=== PATIENT | female | born 1990 | race Caucasian/White ===

== ENCOUNTER 2024-02-13 12:07 | Emergency (ER) | payer SELFPAY ==
[2024-02-13 12:23] VITALS: BP 110/73; PULSE 64; RESP 16; TEMP 36.7; O2SAT 98
[2024-02-13 13:22] VITALS: BP 108/72; PULSE 72; RESP 20; TEMP 36.9; O2SAT 99
--- NOTE | 2024-02-13 14:15 | DI.RAD_ITS ---
Exam(s) XR WRIST RT COMPLETE EXAM: XR WRIST RT COMPLETE CLINICAL HISTORY: remote carpal arleth surge, wrist pain. TECHNIQUE: 2D digital imaging was performed. COMPARISON: No exams were available for comparison FINDINGS: 3 views There are no fractures of the distal radius and ulna nor significant ulnar variance and no fractures of the scaphoid and lunate nor scapholunate distance abnormality. However, there are multiple calcif ic densities on the medial aspect of the wrist around and dorsal to ulnar styloid. These may be rela demario to the triangular fibrocartilage although this would be somewhat unusual in a 33-year-old. There are also some smaller calcifications seen on the volar aspect of the proximal carpal row as seen on the lateral view. Larger calcific densities are seen dorsally on the lateral view on the medial aspe ct of the wrist dorsal to the triquetrum. No osseous lesions nor erosions evident. No osteoarthritic degenerative changes. No significant oss eous lesions evident. IMPRESSION: Multiple soft tissue calcifications noted on the medial aspect of the wrist as described above. DATA REPOSITORY: RADIATION DOSE DELIVERED:
[2024-02-13] MEDS: Cyclobenzaprine 10 MG TAB 5 MG PO (14:32)
[2024-02-13] MEDS: Ketorolac 15 MG/ML VIAL IM (14:32)
--- NOTE | 2024-02-13 15:06 | ED.GENADUL_ITS ---
Discharge Plan Disposition Patient Disposition: Home Condition: Stable Discharge Details Chief Complaint: Orthopedic Clinical Impression: Pain in wrist Primary Care Provider: [facility],Local ED Provider: Gus Serrano Home Meds and New Rx's Prescriptions: No Action No Known Home Meds Discharge Instructions Instructions: Joint Pain Additional Instructions: Please continue with ibuprofen acetaminophen ice rest elevation, follow-up closely with orthopedic team. Return to the emergency department for any worsening symptoms HPI General Date/Time Provider Initiated Documentation: 02/13/24 13:49 . HPI Narrative: 43-year-old female carpal tunnel surgery in June presents with acute on chronic left wrist pain to medial wrist, no trauma no fever Related Data Home Medications ?Medication ?Instructions ?Recorded ?Confirmed Unknown [No Known Home Meds] 02/13/24 02/13/24 Allergies Allergy/AdvReac Type Severity Reaction Status Date / Time No Known Allergies Allergy Unverified 02/13/24 13:59 General Stated Complaint: Orthopedic BRANDON: 4 Exam Narrative Exam Narrative: Left upper extremity: Warm well-perfused, radial pulse intact, median radial and ulnar sensory distribution intact, full flexion extension, full range of motion ulnar and radial flexion, no ecchymosis abrasions or signs of recent trauma, soft compartments Course Vital Signs Vital signs: Vital Signs Temperature 36.7 C 02/13/24 12:23 Pulse 64 02/13/24 12:23 Respiratory Rate 16 02/13/24 12:23 Blood Pressure 110/73 02/13/24 12:23 Pulse Oximetry 98 02/13/24 12:23 Temperature 36.9 C 02/13/24 13:22 Temperature Source Temporal Artery Scan 02/13/24 13:22 Pulse 72 02/13/24 13:22 Pulse Rhythm Regular 02/13/24 13:22 Pulse Strength Normal 02/13/24 13:22 Respiratory Rate 20 02/13/24 13:22 Respiratory Effort Normal 02/13/24 14:00 Respiratory Depth Normal 02/13/24 13:22 Respiratory Pattern Normal 02/13/24 13:22 Blood Pressure 108/72 02/13/24 13:22 Blood Pressure Mean 84 02/13/24 13:22 Blood Pressure Position Sitting 02/13/24 13:22 Pulse Oximetry 99 02/13/24 13:22 Oxygen Delivery Method Room Air 02/13/24 13:22 Oxygen Flow Rate 0 02/13/24 13:22 Pain Level 4 02/13/24 14:32 Medical Decision Making 33-year-old female carpal tunnel surgery left wrist in June presents with acute on chronic atraumatic left wrist pain, afebrile nontoxic no effusion no external signs of trauma, neurovascular exam of limb intact, x-ray showing some soft tissue calcifications, likely chronic changes related to chronic inflammation, low suspicion for septic joint fracture or dislocation, likely soft tissue strain or sprain. Patient recently moved here and needs orthopedic follow-up, will place referral, patient has wrist splint, patient will continue with anti-inflammatory analgesia. Have given a dose of muscle relaxant here in department. Home care instructions and return precautions given Quality:SDOH Health Related Social Needs: No Data to Display PFSH All Active Problems (Updated 02/13/24 @ 15:13 by Gus Serrano MD) Pain in wrist (Acute) Social History Smoking/Tobacco Use Status: Current every day Tobacco Type: cigarettes and e- cigarettes Smoking risk assessment performed?: Yes Alcohol Intake: never Drug use: Never Substance use type: does not use
== END 2024-02-13 15:40 | disposition home or self-care (01) ==
LOC: ER 15:13 → RED 15:40
PROVIDERS: Emergency Provider Emergency Medicine
DX: M25.531 Pain in right wrist (principal); F17.210 Nicotine dependence, cigarettes, uncomplicated; F17.290 Nicotine dependence, other tobacco product, uncomplicated
CPT/HCPCS: 96372; 99283; 73110; J1885